=== PATIENT | male | born 1990 | race Caucasian/White ===

== ENCOUNTER 2017-01-12 03:12 | Emergency (ER) | payer MEDICAID ==
[2017-01-12 03:18] VITALS: BP 120/74; PULSE 74; RESP 20; TEMP 98.2; O2SAT 94
[2017-01-12] MEDS ORDERED: IBUPROFEN 200 MG TAB PO ONE (03:42)
--- NOTE | 2017-01-12 03:42 | EDPHY ---
H & P Stated Complaint: right shoulder pain-no trauma HPI/ROS: HPI CHIEF COMPLAINT: Right shoulder pain worse with range of motion HISTORY OF PRESENT ILLNESS: This patient is a very pleasant 26-year-old male no significant medical history, has had surgery on his left shoulder, presents emergency room with right shoulder pain. Patient does not remember any injury. He states he has been vomiting for 2 days progressively worse. He has worse pain with range of motion. Especially with supination pronation of his wrist. Also abduction of his arm. He denies trauma. 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 Does not remember injuring his shoulder. He has no chest pain or shortness of breath no fever. Has pain to the anterior shoulder deep in his shoulder joint. No AC joint pain. No posterior scapula pain. Describes . Past Medical History: No significant medical history Past Surgical History: Left shoulder surgery Social History: Endorses daily tobacco, denies drugs or alcohol Family History:Noncontributory ROS REVIEW OF SYSTEMS: A comprehensive 10 point review of systems is otherwise negative aside from elements mentioned in the history of present illness. Exam Constitutional triage nursing summary reviewed, vital signs reviewed, awake/ alert. Eyes normal conjunctivae and sclera, EOMI, PERRLA. HENT normal inspection, atraumatic, moist mucus membranes, no epistaxis, neck supple/ no meningismus, no raccoon eyes. Respiratory clear to auscultation bilaterally, normal breath sounds, no respiratory distress, no wheezing. Cardiovascular rate normal, regular rhythm, no murmur, no edema, distal pulses normal. Gastrointestinal soft, non-tender, no rebound, no guarding, normal bowel sounds, no distension, no pulsatile mass. Genitourinary no CVA tenderness. Musculoskeletal right arm: neurovascularly intact good DP, good cap refill, normal sensation, has pain with range of motion of the right shoulder. Especially abduction and supination pronation of the wrist. Tender palpation over the anterior shoulder deep palpation. Axillary nerve intact. no midline vertebral tenderness, full range of motion, no calf swelling, no tenderness of extremities, no meningismus, good pulses, neurovascularly intact. Skin pink, warm, & dry, no rash, skin atraumatic. Neurologic awake, alert and oriented x 3, AAOx3, moves all 4 extremities equally, motor intact, sensory intact, CN II-XII intact, normal cerebellar, normal vision, normal speech. Psychiatric normal mood/affect. Heme/Lymph/Immune no lymphadenopathy. Differential Diagnosis: Includes but is not limited to in a particular order, fracture, doubt septic joint, rotator cuff injury, tendinitis Medical Decision Making: plan for this patient 800 mg ibuprofen 800, right arm sling, ice pack. X-ray of the right shoulder. If x-ray is normal I do recommend he for follows up closely with Orthopedics. Will refer him. Re-evaluation: ED x-ray right shoulder: Negative three-view of the right shoulder. No fracture visualize. Image interpreted myself. 0345: Plan for right arm sling, ibuprofen 800 mg, orthopedic follow-up. Patient agrees with this plan. Will give a prescription for Saco limited supply as well as ibuprofen 800 mg. Source: Patient - Medical/Surgical History Hx Asthma: No Hx Chronic Respiratory Disease: No Hx Diabetes: No Hx Cardiac Disease: No Hx Renal Disease: No Hx Cirrhosis: No Hx Alcoholism: No Hx HIV/AIDS: No Hx Splenectomy or Spleen Trauma: No Other PMH: shoulder surgery - Social History Smoking Status: Current every day smoker Constitutional: Initial Vital Signs Temperature (C) 36.8 C 01/12/17 03:15 Heart Rate 74 01/12/17 03:15 Respiratory Rate 20 01/12/17 03:15 Blood Pressure 120/74 01/12/17 03:15 O2 Sat (%) 94 01/12/17 03:15 O2 Delivery Mode Room Air Allergies/Adverse Reactions: tramadol Allergy (Verified 01/12/17 03:14) Home Medications: Medication Instructions Recorded Hydrocodone/APAP 5/325 [[place] 1 - 2 tab PO Q4H PRN #10 tab 01/12/17 5/325] Ibuprofen [Motrin (*)] 800 mg PO Q6-8PRN #10 tab 01/12/17 Departure - Departure Disposition: Home, Routine, Self-Care Clinical Impression: Rotator cuff injury Qualifiers: Encounter type: initial encounter Laterality: right Qualified Code(s): S46.001A - Unspecified injury of muscle(s) and tendon(s) of the rotator cuff of right shoulder, initial encounter Condition: Good Instructions: Rotator Cuff Injury (ED) Additional Instructions: 1. I do recommend he ice your shoulder. 2. take anti-inflammatory pain medicine for acute pain control. 3.Please stay in your sling for comfort. You may come out of it and range her shoulder and arm. 4. please follow up with Orthopedics. Please call their for an appointment. Referrals: NONE *PRIMARY CARE P,. [Primary Care Provider] - As per Instructions Omar Faulkner MD [Medical Doctor] - As per Instructions Prescriptions: Hydrocodone/APAP 5/325 [Saco 5/325] 1 - 2 tab PO Q4H PRN #10 tab PRN Reason: Pain, Moderate Ibuprofen [Motrin (*)] 800 mg PO Q6-8PRN #10 tab
== END 2017-01-12 03:56 | disposition home or self-care (01) ==
DX: S46.001A Unspecified injury of muscle(s) and tendon(s) of the rotator cuff of right shoulder, initial encounter (principal); F17.200 Nicotine dependence, unspecified, uncomplicated; X58.XXXA Exposure to other specified factors, initial encounter
CPT/HCPCS: A4565

== ENCOUNTER 2017-02-20 08:48 | Emergency (ER) | payer MEDICAID ==
[2017-02-20 09:06] VITALS: RESP 16; TEMP 97.7
--- NOTE | 2017-02-20 10:28 | EDPHY ---
H & P Stated Complaint: hit head with dog, passed out, lac to eye brow, pos loc HPI/ROS: Chief complaint: Head injury, facial laceration History of present illness: 26-year-old male presents to the emergency department for evaluation of a head injury. Patient states he was playing with a friend's dog earlier this morning when the dog essentially head-butted him and knocked him backwards. Patient did lose consciousness. Since then he has had a mild headache. He has noted a laceration to the right eyebrow region. His tetanus is up-to-date. He denies other associated signs or symptoms including no report of nausea or vomiting, no changes in vision or hearing, no dizziness. He denies trauma to other parts of the body including the neck, back , chest, abdomen, pelvis or extremities. Review of systems: A 10 point review of systems was obtained and other than described above was negative - Personal History Current Tetanus/Diphtheria Vaccine: Yes Current Tetanus Diphtheria and Acellular Pertussis (TDAP): Yes - Medical/Surgical History Hx Asthma: No Hx Chronic Respiratory Disease: No Hx Diabetes: No Hx Cardiac Disease: No Hx Renal Disease: No Hx Cirrhosis: No Hx Alcoholism: No Hx HIV/AIDS: No Hx Splenectomy or Spleen Trauma: No Other PMH: shoulder surgery - Social History Smoking Status: Current some day smoker - Physical Exam Exam: General Appearance: Alert, nontoxic Eyes: PERRLA Respiratory: Lungs clear to auscultation bilaterally Cardiac: Regular rate and rhythm. Gastrointestinal: Soft, nondistended, nontender Neurological: Alert and oriented x4. Cranial nerves 2-12 grossly intact. Strength and sensation intact and symmetrical. Skin: 1 cm laceration to the right eyebrow region Musculoskeletal: Head is nontender without crepitus or bony deformity. The spine is nontender without crepitus, bony deformity or step-off. Patient moving all extremities without difficulty. He is ambulating well. Constitutional: Initial Vital Signs Temperature (C) 36.5 C 02/20/17 09:03 Heart Rate 69 02/20/17 09:03 Respiratory Rate 16 02/20/17 09:03 Blood Pressure 121/71 H 02/20/17 09:03 O2 Sat (%) 97 02/20/17 09:03 O2 Delivery Mode Room Air Allergies/Adverse Reactions: No Known Allergies Allergy (Unverified 02/20/17 09:03) Home Medications: Medication Instructions Recorded Hydrocodone/APAP 5/325 [[place] 1 - 2 tab PO Q4H PRN #10 tab 01/12/17 5/325] Ibuprofen [Motrin (*)] 800 mg PO Q6-8PRN #10 tab 01/12/17 Medical Decision Making - Diagnostics Imaging: Discussed imaging studies w/ banquet server on call Radiologist Procedures: Procedure: Laceration repair. Verbal consent was obtained from the patient. The 1 cm laceration on the right eyebrow was anesthetized in the usual fashion. The wound was irrigated, draped and explored to its base with a gloved finger. There were no deep structures involved. No tendon injury was identified. The wound was repaired with 6 0 Prolene, running stitch. The wound repair was simple. The procedure was performed by myself. ED Course/Re-evaluation: Patient seen under the supervision of my secondary supervising physician Dr. Gracia Hernandez. Patient presents to the emergency department for evaluation of a head injury. He is nontoxic. Vital signs are stable. Physical exam reveals a laceration of the face but is otherwise benign. Given loss of consciousness a CT scan is pursued and negative. Laceration is repaired. His tetanus is already up-to-date. By history and physical exam no evidence of trauma to other parts of the body. Patient is discharged home. Home care is discussed. He is asked to follow up with a primary care doctor for recheck. Return precautions are given. Patient voiced understanding and agreement with plan. Differential Diagnosis: Included but not limited to soft tissue injury, bony injury, bony fracture, intracranial injury - Data Points Medications Given: Discontinued Medications Ondansetron HCl (Zofran Odt) 4 mg PO EDNOW ONE Stop: 02/20/17 10:33 Last Admin: 02/20/17 10:39 Dose: 4 mg Departure - Departure Disposition: Home, Routine, Self-Care Clinical Impression: Head injury Qualifiers: Encounter type: initial encounter Qualified Code(s): S09.90XA - Unspecified injury of head, initial encounter Facial laceration Qualifiers: Encounter type: initial encounter Qualified Code(s): S01.81XA - Laceration without foreign body of other part of head, initial encounter Condition: Good Instructions: Head Injury (ED), Facial Laceration (ED), Acute Wounds (ED) Additional Instructions: Follow-up with your primary care doctor this week for recheck Stitches to be removed in 7 days If symptoms worsen or new symptoms develop return to the emergency room for recheck Referrals: AMELAI MANE [Other] - As per Instructions Stand Alone Forms: Work Excuse
[2017-02-20] MEDS ORDERED: ONDANSETRON DISINTEGRATING 4 MG TAB PO ONE (10:32)
[2017-02-20 10:48] VITALS: BP 140/73; PULSE 71; O2SAT 98
== END 2017-02-20 10:48 | disposition home or self-care (01) ==
PROC: 08QNXZZ Repair Right Upper Eyelid, External Approach (ICD-10-PCS; principal; 2017-02-20)
DX: S01.111A Laceration without foreign body of right eyelid and periocular area, initial encounter (principal); F17.200 Nicotine dependence, unspecified, uncomplicated; W54.1XXA Struck by dog, initial encounter; Y92.89 Other specified places as the place of occurrence of the external cause; Y99.8 Other external cause status; Y93.89 Activity, other specified

== ENCOUNTER 2018-03-10 12:20 | Emergency (ER) | payer MEDICAID ==
--- NOTE | 2018-03-10 13:08 | EDPHY ---
H & P Stated Complaint: Ijury to R elbow yesterday;also bilat intermiitent testicular pain x 3 mo Time Seen by Provider: 03/10/18 12:53 HPI/ROS: CHIEF COMPLAINT: Right elbow pain and bilateral testicular pain HISTORY OF PRESENT ILLNESS: Patient is a 27-year-old man who complains of pain to the medial aspect of his right forearm. He states that yesterday he was helping neighbors move and he reached out to catch a cabinet that was falling and experienced pain to his forearm the area of his medial elbow/flexor tensor muscles. No deformity. Is more painful today than yesterday. Normal sensation and pulses and range of motion distally. He states that it hurts with hyperflexion of his elbow. No pain in the elbow itself or biceps region. He also complains of intermittent pain to both testicles and states that occasionally there undescended when he awakens in the morning but they descend during the day. He has not had any swelling or trauma. He denies risk of STD . He has not had any discharge or erythema or rashes. They are currently asymptomatic. He has not noticed any hernias. REVIEW OF SYSTEMS: Constitutional: denies: chills, fever, recent illness, recent injury EENTM: denies: blurred vision, double vision, nose congestion Respiratory: denies: cough, shortness of breath Cardiac: denies: chest pain, irregular heart rate, lightheadedness, palpitations Gastrointestinal/Abdominal: denies: abdominal pain, diarrhea, nausea, vomiting, blood streaked stools Genitourinary: denies: dysuria, frequency, hematuria, pain Musculoskeletal: denies: joint pain, muscle pain Skin: denies: lesions, rash, jaundice, bruising Neurological: denies: headache, numbness, paresthesia, tingling, dizziness, weakness Hematologic/Lymphatic: denies: blood clots, easy bleeding, easy bruising Immunologic/allergic: denies: HIV/AIDS, transplant EXAM: GENERAL: Well-appearing, well-nourished and in no acute distress. HEAD: Atraumatic, normocephalic. EYES: Pupils equal round and reactive to light, extraocular movements intact, sclera anicteric, conjunctiva are normal. ENT: TMs normal, nares patent, oropharynx clear without exudates. Moist mucous membranes. NECK: Normal range of motion, supple without lymphadenopathy or JVD. LUNGS: Breath sounds clear to auscultation bilaterally and equal. No wheezes rales or rhonchi. HEART: Regular rate and rhythm without murmurs, rubs or gallops. ABDOMEN: Soft, nontender, normoactive bowel sounds. No guarding, no rebound. No masses appreciated. : Nontender normal appearing testes with normal cremasteric reflex, no discharge or erythema or swelling or rashes. BACK: No CVA tenderness, no spinal tenderness, step-offs or deformities EXTREMITIES: Mild pain to right forearm medial aspect. Pain improves with flexion extension of the wrist and fingers. He states that it feels tight when he flexes his elbow. No obvious swelling or deformity or erythema. NEUROLOGICAL: Cranial nerves II through XII grossly intact. Normal speech, normal gait. 5/5 strength, normal movement in all extremities, normal sensation PSYCH: Normal mood, normal affect. SKIN: Warm, dry, normal turgor, no visible rashes or lesions. Source: Patient Exam Limitations: No limitations - Personal History Current Tetanus Diphtheria and Acellular Pertussis (TDAP): Yes - Medical/Surgical History Hx Asthma: No Hx Chronic Respiratory Disease: No Hx Diabetes: No Hx Cardiac Disease: No Hx Renal Disease: No Hx Cirrhosis: No Hx Alcoholism: No Hx HIV/AIDS: No Hx Splenectomy or Spleen Trauma: No Other PMH: shoulder surgery. ADHD. pilonodal cyst - Family History Significant Family History: No pertinent family hx - Social History Smoking Status: Current every day smoker Alcohol Use: Sober Constitutional: Initial Vital Signs Temperature (C) 36.7 C 03/10/18 12:23 Heart Rate 88 03/10/18 12:23 Respiratory Rate 16 03/10/18 12:23 Blood Pressure 137/80 H 03/10/18 12:23 O2 Sat (%) 98 03/10/18 12:23 O2 Delivery Mode Room Air Allergies/Adverse Reactions: No Known Allergies Allergy (Verified 03/10/18 12:27) Medical Decision Making - Diagnostics Imaging Results: Imaging Impressions Forearm X-Ray 03/10/18 13:04 Impression: Nothing acute identified. Testicular Ultrasound 03/10/18 13:05 Impression: Normal scrotal sonography. Imaging: Discussed imaging studies w/ fisher scallop Radiologist ED Course/Re-evaluation: 2:15 p.m. We discussed the x-ray and ultrasound results. Patient feels reassured. I suggested rest and ice and anti-inflammatories for his arm. Suggested he follow up with a surgeon about his mobile testicles. He is happy with this plan and declines further workup or testing at this time. Differential Diagnosis: Partial list of the Differential diagnosis considered include but were not limited to; tendinitis, contusion, hernia torsion and although unlikely based on the history and physical exam, I also considered sexually transmitted disease , epididymitis, fracture, dislocation. I discussed these differential diagnoses and the plan with the patient as well as the usual and expected course. The patient understands that the diagnosis is provisional and that in medicine we are not always correct and that further workup is often warranted. Usual and customary warnings were given. All of the patient's questions were answered. The patient was instructed to return to the emergency department should the symptoms at all worsen or return, otherwise to followup with the physician as we discussed. Departure - Departure Disposition: Home, Routine, Self-Care Clinical Impression: Tendinitis, Retractile testis Condition: Fair Instructions: Tendinitis (ED) Referrals: MARICRUZ PARADA [Primary Care Provider] - As per Instructions Lewis Bowman MD [Medical Doctor] - As per Instructions
[2018-03-10 14:52] VITALS: BP 126/93
== END 2018-03-10 14:51 | disposition home or self-care (01) ==
DX: M77.8 Other enthesopathies, not elsewhere classified (principal); Q55.22 Retractile testis; F17.200 Nicotine dependence, unspecified, uncomplicated

== ENCOUNTER 2018-03-15 00:37 | Emergency (ER) | payer SELFPAY ==
[2018-03-15] MEDS ORDERED: LORazepam 1 MG TAB PO ONE ×2 (01:33→03:04)
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
[2018-03-15 03:10] VITALS: BP 104/70
== END 2018-03-15 03:12 | disposition home or self-care (01) ==
DX: R44.3 Hallucinations, unspecified (principal); F10.129 Alcohol abuse with intoxication, unspecified; F17.200 Nicotine dependence, unspecified, uncomplicated
CPT/HCPCS: 80305